=== PATIENT | male | born 1965 | race Caucasian/White ===

== ENCOUNTER 2016-04-02 10:16 | Emergency (ER) | payer OTHER ==
[~2016-04-02] VITALS: Ht 180.3 cm; Wt 70.5 kg
[2016-04-02 10:21] VITALS: BP 135/96; PULSE 76; RESP 18; O2SAT 94
--- NOTE | 2016-04-02 10:42 | ED.REPORT ---
HPI-General Illness Date of Service Apr 02, 2016 ED Provider: Panfilo Godfrey MD History of Present Illness: pateint presents with many concerns, homeless, no phone, problems sleeping, penitentiary issue. Was on clonzapam which worked but has not been able to get for some time. Mirtazepine is not helpful. Unable to get in touch with primary care or counseling because of transportation issues. Lives in [place] Nursing Notes Stated Complaint: SLEEPNESS NIGHTS/POSSIBLE BI-POLAR Chief Complaint: Psychiatric Complaint Nursing Notes Reviewed: Yes Allergies: Coded Allergies: No Known Allergies (Unverified , 09/18/15) General Time Seen by MD: 10:29 Chief Complaint Other (sleeping issue) Hx Obtained From: Patient Sudden in Onset?: No Onset Occurred: More than a week ago... (>6 months) Symptom Duration: Since onset Past Medical History Past Medical History deaf, does ok with lip reading. today 04/02/2016 requesting written questions Reports: COPD Past Surgical History cochlear implant Smoking History Current Every Day Smoker Social History Alcohol Use: Denies alcohol use Drug Use: Denies drug use Other Social History: Occupation states homeless but also states he lives in [place] 04/02/2016 Ambulatory Status Independent Review of Systems Full Review of Systems Constitutional: Reports: Fatigue, Denies: Chills Eyes: Denies: Blurred left, Blurred right Respiratory: Reports: Dyspnea on exertion (COPD) Cardiovascular: Denies: Chest pain Musculoskeletal: Reports: Back pain (Chronic pain) Skin: Denies Bruising Allergy / Immune: Denies: Allergic reaction Physical Exam Vital Signs Vital Signs Date Time Temp Pulse Resp B/P Pulse Ox O2 Delivery O2 Flow Rate FiO2 04/02/16 14:13 78 18 128/93 97 Room Air 04/02/16 10:21 37.0 76 18 135/96 94 Room Air Initial VS: Reviewed, Vital signs normal General/Constitutional: Well-developed, Well-nourished Head / Eyes: Atraumatic, Normocephalic, PERRL ENT: Mucous membranes moist, Conjunctiva normal, No scleral icterus Neck: Supple, Non-tender, Full range of motion Respiratory: Breath sounds normal, Clear to auscultation, No respiratory distress Cardiovascular: Regular rate & rhythm, Heart sounds normal, Intact distal pulses Abdomen / GI: Soft, Non-tender, No guarding, No rebound, No distention Back: No CVA tenderness Lymphatic: No lymphadenopathy Extremities: Vascular intact, Neuro intact, No swelling, No tenderness Skin: Warm, Dry, No cyanosis Neurologic: Alert, Oriented, Nonfocal Psychiatric: Mood/affect normal, Behavior normal, Normal thought content General/Constitutional: Awake, Alert, No acute distress Appearance / Presentation: Positive: Cachectic, Underweight Head / Eyes: Atraumatic, Normocephalic, PERRL Wheezing / Retractions: Positive: Wheezing mild Cardiovascular: Heart rate NL, Regular rhythm, Heart sounds NL, No gallop Interpretation & Diagnostics Lab Results Interpretation Test 04/02/16 10:52 Hold Urine Received (Received) Re-Eval/Medical Decision Med Decision/Clinical Course Discussed with VISUAL DEVELOPER. Arranged for next day appointment with cpit team. Patient OK with this Discharge & Departure Primary Impression: Acute situational disturbance Additional Impression: Sleeping difficulty Disposition: Home Additional Instructions: You are being provided a prescription of trazodone to help with your sleeping issues. As this has been a long standing issue it may take some time before improvement is noticed. Please keep the counseling appointment that has been scheduled by VISUAL DEVELOPER. [place]! Referrals: OTHER,PHYSICIAN (PCP) (Family) EDSupervising Provider for APC: Panfilo Godfrey MD Attending Statement Attending attestation: I saw this patient in conjunction with Carlita URBANO. I agree with the workup , evaluation, treatment and disposition. Panfilo Gutierrez MD, MD Apr 02, 2016 10:42 Carlita Quesada Apr 02, 2016 11:25
[2016-04-02 14:13] VITALS: BP 128/93; PULSE 78; RESP 18; O2SAT 97
== END 2016-04-02 14:14 | disposition home or self-care (01) ==
LOC: SED 10:16
DX: F43.0 Acute stress reaction (principal); G47.9 Sleep disorder, unspecified; J44.9 Chronic obstructive pulmonary disease, unspecified; F17.200 Nicotine dependence, unspecified, uncomplicated; Z59.0 Homelessness

== ENCOUNTER 2016-10-18 20:20 | Inpatient (IN) | payer MEDICAID, OTHER ==
[~2016-10-18] VITALS: Ht 180.3 cm; Wt 64.0 kg
[2016-10-18 20:26] VITALS: BP 125/79; PULSE 85; RESP 16; O2SAT 96
--- NOTE | 2016-10-18 22:21 | ED.REPORT ---
HPI-Psychiatric Illness Date of Service Oct 18, 2016 ED Provider: Jim Parra MD The pt is a 51 y/o, deaf male w/ a hx of bipolar disorder, Hepatitis C, ADHD, and COPD presenting to the ED due to suicidal ideations. The pts reports him saying that his mind and body are becoming fatigued, the pt crying from morning to night, as well as suicidal ideations and suggesting he would like to jump in front of a truck. She reports that the pt has not used any alcohol or drugs. Denies nausea, vomiting, diarrhea, chills, fever, chest or abdominal pain, SOB, or wheezing. The pt also uses an inhaler and last had a breathing treatment yesterday morning. Nursing Notes Stated Complaint: SUICIDAL,DEPRESSION,ANXIETY Chief Complaint: Suicidal ideations Nursing Notes Reviewed: Yes Allergies: Coded Allergies: No Known Allergies (Unverified , 09/18/15) Scheduled Amoxicillin (Amoxicillin) 500 Mg Capsule 500 MG PO TID Lamotrigine (Lamotrigine) 150 Mg Tablet 150 MG PO DAILY Trazodone (Trazodone) 100 Mg Tablet 100 MG PO HS Scheduled PRN Alprazolam ER (Xanax XR) 3 Mg Tab.er.24h 0.5 MG PO BID PRN PRN PRN Ibuprofen (Ibuprofen) 800 Mg Tablet 800 MG PO TID PRN PRN For Pain General Time Seen by MD: 22:19 Chief Complaint Suicidal ideation Hx Obtained From: Spouse Arrived By: Walk-in Symptom Duration: Since onset Recent Healthcare: No recent doctor visit, No recent hospitalization Similar Sx Previous: Yes Risk-Psychiatric Illness Suicide Risk Stratification Suicide Risk Factors - Adult: No: Alcohol use, Substance abuse RF Statements: Risk factors reviewed Past Medical History Past Medical History deaf, does ok with lip reading. today 04/02/2016 requesting written questions Hepatitis C ADHD Reports: COPD Past Surgical History cochlear implant Smoking History Current Every Day Smoker Social History Alcohol Use: Denies alcohol use Drug Use: Denies drug use Other Social History: Occupation states homeless but also states he lives in [place] 04/02/2016 Ambulatory Status Independent Review of Systems The pt's reports the pt crying all day Constitutional: Reports: Fatigue (of "body and mind" ), Denies: Chills, Fever Respiratory: Denies: Shortness of breath, Wheezing Cardiovascular: Denies: Chest pain GI: Denies: Abdominal pain, Diarrhea, Nausea, Vomiting Psychiatric: Reports: Depression, Suicidal ideation Complete sys rev & neg: except as marked. Physical Exam Initial Vital Signs Vital Signs (First) Date Time Temp Pulse Resp B/P Pulse Ox O2 Delivery O2 Flow Rate FiO2 10/18/16 20:26 36.6 85 16 125/79 96 Room Air Initial VS: Reviewed, Vital signs normal ENT: Mucous membranes moist, Conjunctiva normal, No scleral icterus Neck: Supple, Non-tender, Full range of motion Cardiovascular: Regular rate & rhythm, Heart sounds normal, Intact distal pulses Extremities: Vascular intact, Neuro intact, No swelling, No tenderness Skin: Warm, Dry, No cyanosis General/Constitutional: Awake, Alert Neurologic: No motor deficits Psychiatric: Not homicidal Abnormal Thinking / Perception: Positive: Suicidal, with plan (jumping in front of a truck ) Racing thoughts Head / Eyes: Normocephalic, PERRL, EOMI Respiratory / Chest: Atraumatic Resp Distress / Stridor: Positive: Resp distress mild Expiratory wheezes in all lung pacheco Interpretation & Diagnostics Lab Results Interpretation Result Diagram: 10/18/16 2241 10/18/16 2241 Test 10/18/16 22:22 10/18/16 22:41 10/18/16 22:50 Hold Urine Received (Received) White Blood Count 10.1th/mm3 (3.8-10.1) Red Blood Count 4.45mil/mm3 (4.40-5.80) Hemoglobin 14.3g/dL (13.8-17.2) Hematocrit 42.5% (41.0-50.0) Mean Corpuscular Volume 95.5fL (81-100) Mean Corpuscular Hemoglobin 32.1pg (27.0-35.0) Mean Corpuscular Hemoglobin Concent 33.6% (32.0-37.0) Red Cell Distribution Width 13.5% (12.3-15.4) Platelet Count 253bil/L (150-400) Neutrophils (%) (Auto) 59.5% (40-74) Lymphocytes (%) (Auto) 29.2% (14-46) Monocytes (%) (Auto) 9.3% (4-12) Eosinophils (%) (Auto) 1.5% (0-5) Basophils (%) (Auto) 0.2% (0-3) Sodium Level 142mEq/L (134-144) Potassium Level 4.5mEq/L (3.5-5.2) Chloride Level 102mEq/L (97-108) Carbon Dioxide Level 28mmol/L (18-29) Blood Urea Nitrogen 25mg/dL (6-24) Creatinine 1.11mg/dL (0.76-1.27) Estimat Glomerular Filtration Rate 75mL/min (>59) Glucose Level 64mg/dL (60-99) Calcium Level 9.6mg/dL (8.5-10.1) Total Bilirubin 0.2mg/dL (0.0-1.2) Aspartate Amino Transf (AST/SGOT) 23U/L (0-50) Alanine Aminotransferase (ALT/SGPT) 40U/L (0-44) Alkaline Phosphatase 66U/L (25-150) Total Protein 7.5g/dL (6.4-8.4) Albumin 4.3g/dL (3.4-5.0) Thyroid Stimulating Hormone (TSH) 3.390uIU/mL (0.450-4.500) Hold Jasso Top Tube Received (Received) Lab values outside NL range: no clinical significance. Re-Eval/Medical Decision Med Decision/Clinical Course I assumed care from Dr. Parra at 0600; his note and documentation is as above. I evaluated the patient independently. At time of sign out, patient's disposition was pending psychiatric social worker supervisor evaluation and likely admission for suicidal ideations. Laboratory studies here reviewed and reassuring. His urine tox screen did demonstrate positive for benzodiazepines (taking alprazolam ), marijuana (which he admits to using intermittently) and PCP. I do not think that marijuana is the cause of his symptoms at this time. With respect to the PCP screen, I discussed this with the patient and he vehemently denies any other drug use while readily admitting to marijuana use. He did not seem to know what PCP was. In addition, routine drug screens can have false positives, especially with respect to PCP. Also, the patient does not demonstrate a PCP toxidrome at this time. It seems unlikely that this is responsible for his symptoms at this time. Given the above, after discussion with the inpatient team, decision was made to admit him here for further management and evaluation ; appreciate assistance. Patient agreeable to the plan as stated, no further questions. Re-Evaluation/Progress : Time of Eval: 14:30 Patient Status: Condition improved Re-Evaluation/Progress Note: Recheck by Dr. Li. Pt will be admitted to the psychiatric unit. Counseled Regarding: Diagnosis, Lab results, Need for admission Discharge & Departure Shift Change Sign-Out Patient Care Transferred: Yes Discussed Complaint(s): Yes Input from Consult: Care transferred to Dr. Li Response to Therapy: Unchanged Impression: Primary Impression: Depression Depression Type: unspecified Qualified Code: F32.9 - Major depressive disorder, single episode, unspecified Additional Impression: Suicidal ideation Disposition: ADMITTED TO HOSPITAL Discharge Condition All VS Reviewed: Yes Condition: Stable Referrals: Natalya Sainz PA-C (PCP) Care Transferred to: Dr. Li Care Transferred at: 06:00 Scribe Attestation Portions of this note were transcribed by Aubrey Green. I, Dr. Parra personally performed the history, physical exam and medical decision-making; I reviewed and confirmed the accuracy of the information in the transcribed note. copies to: Natalya Sainz PA-C, Howard L MD Oct 18, 2016 22:21 Aubrey Green Oct 18, 2016 22:39 Aurelio Li MD Oct 19, 2016 06:01 SONU ANDERSON Oct 19, 2016 14:34
[2016-10-18] MEDS ORDERED: Albuterol HFA 60 Puff 8 Gm Inhaler INHALATION ONE (22:25)
[2016-10-18 22:58] LABS: BASOPHILS % (AUTO) 0.2 % (0-3); EOSINOPHILS % (AUTO) 1.5 % (0-5); MONOCYTES % (AUTO) 9.3 % (4-12); Mean Corpuscular Hemoglobin 32.1 pg (27.0-35.0); Mean Corpuscular Volume 95.5 fL (81-100); NEUTROPHILS % (AUTO) 59.5 % (40-74); Platelet Count 253 bil/L (150-400)
[2016-10-18] MEDS ORDERED: _Proair 200 Puff/8.5 GM Inhaler INHALATION PRN (23:15)
[2016-10-19 06:09] VITALS: BP 111/68; PULSE 57; RESP 16; O2SAT 99
[2016-10-19] MEDS ORDERED: IBUP800T28 PO (11:41)
[2016-10-19] MEDS ORDERED: TRAZ-118 PO (11:41)
[2016-10-19] MEDS ORDERED: AMOX500C2 PO (11:41)
[2016-10-19] MEDS ORDERED: ALPR3TAB PO (11:41)
[2016-10-19] MEDS ORDERED: LAMO150T2 PO (11:41)
[2016-10-19 14:40] VITALS: BP 100/81; PULSE 52; O2SAT 100
[2016-10-19] MEDS ORDERED: ALPR0.254 PO (15:33)
[2016-10-19] MEDS ORDERED: ALBU8.5H2 INHALATION (15:33)
[2016-10-19 17:15] VITALS: BP 100/81; PULSE 52
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
--- NOTE | 2016-10-19 20:03 | NUR ---
OBSERVATIONS 0900 TO 0 Pt arrived on the unit at 16:55. Pt is pleasant and cooperative with staff. Pt showered. Maintained Q15 checks for safety as directed.
[2016-10-19] MEDS ORDERED: Alum-Mag Hydrox-Simeth 30 mL Suspension PO PRN (20:25)
[2016-10-19] MEDS ORDERED: Magnesium Hydroxide 10 mL Oral Concentration PO PRN (20:25)
[2016-10-19] MEDS ORDERED: LORazepam 1 mg Tablet PO PRN (20:30)
[2016-10-19] MEDS ORDERED: Benzocaine-Menthol Lozenge 2/Pkg PO PRN (20:30)
--- NOTE | 2016-10-20 05:33 | NUR ---
nursing, nights, 11-7 s/o- has appeared to sleep after 2244 during q 15 minute assessments. a- no apparent distress. p- monitor behavior/emotional state, quality, times and amount of sleep, use and effect of medication. julian
[2016-10-20 08:00] VITALS: BP 124/79; PULSE 78; RESP 17
[2016-10-20] MEDS: lamoTRIgine 100 mg Tablet PO SCH (14:23)
--- NOTE | 2016-10-20 18:55 | NUR ---
Nurses Note Evening Patient has been out on the unit and has been social superficially with male peers. His affect has been brighter upon approach. He had a visit from his girlfriend which appeared to go well except she reported he was "paranoid." His hygiene,appetite have been within normal limits and patient reported sleeping well last night.Will continue to maintain q 15min. checks for safety,support encouraging relaxation techniques and improved insight. Addendum: 10/20/16 at 0 by EDGARDO DAILY RN Amended: Links added.
--- NOTE | 2016-10-20 21:10 | NUR ---
Observations 0900 - 2130 Pt affect and mood was flat, guarded, paranoid and anxious. Pt was pleasant, polite and cooperative when approached. Pt was social with staff and peers. Pt attended meals in [employer] and ate 100% of his meals. Pt attended community meeting and set a daily goal. Pt rated his mood as "good". Pt speech was limited due to being deaf and eye contact was good. Pt did a lot of writing throughout the day. Pt briefly visited with his and it appeared to go well. Pt watched movie with peers after evening snack. Pt was observed every 15 minutes through the shift as ordered.
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
--- NOTE | 2016-10-21 05:03 | NUR ---
Nursing Note Machinist Supervisor Outside 7pm to 7am Pt asleep at start of shift and slept through the night uninterrupted. Monitor pt q 15 minutes for safety, location and accountability
[2016-10-21 07:35] VITALS: BP 120/78; PULSE 62; RESP 17
[2016-10-21] MEDS: lamoTRIgine 100 mg Tablet PO SCH (08:31)
--- NOTE | 2016-10-21 14:28 | PCM.DIMED ---
Discharge Instructions Date of Service Oct 21, 2016 Dates of Hospitalization Oct 19, 2016 at 17:06 Discharge Diagnosis Discharge Diagnosis [place] I 1. Bipolar depressed by history versus dysthymic disorder versus depression disorder, unspecified. 2. Rule out posttraumatic stress disorder. 3. Rule out panic disorder. 4. Marijuana use disorder. 5. Tobacco use disorder. [place] II Deferred. [place] III 10% of his hearing remaining and has difficulty using [place] sign language, hepatitis C, COPD by report. [place] IV [id number]. [place] V Global assessment of functionin. Test Results Test Results CBC Test 10/18/16 22:41 White Blood Count 10.1th/mm3 (3.8-10.1) Red Blood Count 4.45mil/mm3 (4.40-5.80) Hemoglobin 14.3g/dL (13.8-17.2) Hematocrit 42.5% (41.0-50.0) Mean Corpuscular Volume 95.5fL (81-100) Mean Corpuscular Hemoglobin 32.1pg (27.0-35.0) Mean Corpuscular Hemoglobin Concent 33.6% (32.0-37.0) Red Cell Distribution Width 13.5% (12.3-15.4) Platelet Count 253bil/L (150-400) Neutrophils (%) (Auto) 59.5% (40-74) Lymphocytes (%) (Auto) 29.2% (14-46) Monocytes (%) (Auto) 9.3% (4-12) Eosinophils (%) (Auto) 1.5% (0-5) Basophils (%) (Auto) 0.2% (0-3) CMP Test 10/18/16 22:41 10/18/16 22:50 Sodium Level 142mEq/L Potassium Level 4.5mEq/L Chloride Level 102mEq/L Carbon Dioxide Level 28mmol/L Blood Urea Nitrogen 25mg/dL Creatinine 1.11mg/dL Estimat Glomerular Filtration Rate 75mL/min Glucose Level 64mg/dL Calcium Level 9.6mg/dL Total Bilirubin 0.2mg/dL Aspartate Amino Transf (AST/SGOT) 23U/L Alanine Aminotransferase (ALT/SGPT) 40U/L Alkaline Phosphatase 66U/L Total Protein 7.5g/dL Albumin 4.3g/dL Thyroid Stimulating Hormone (TSH) 3.390uIU/mL Hold Jasso Top Tube Received Diet Discharge Diet: No restrictions Activity Discharge Activity: No restrictions Patient Instructions Patient Instructions Should you have any thoughts of harming yourself or others, please call the crisis line, your provider, 911, or go to the nearest Emergency Department. Do not change or discontinue your medications without discussing with your provider. You have been given a prescription for 30 days supply of your new medication Follow-up plan Counselor Intake Luis Manuel on 10/23/16 at 9am [facility] [address] [place] [address] Arnie Beauchamp MD Oct 21, 2016 14:28
[2016-10-21] MEDS ORDERED: TEMA15CA3 PO (14:31)
[2016-10-21] MEDS ORDERED: ESCI10TA52 PO (14:31)
[2016-10-21] MEDS ORDERED: HYDR50CA3 PO (14:31)
--- NOTE | 2016-10-21 16:04 | NUR ---
Discharge Patient ambulated from unit accompanied by staff. Family waiting downstairs for discharge to transport patient home. Patient home medications and belongings returned prior to discharge. Prescriptions faxed to [facility]. Patient denies suicidal thought/thoughts of self harm, hallucinations and anxiety prior to discharge. Patient verbalizing understanding of discharge medications/instructions.
--- NOTE | 2016-10-21 16:09 | NUR ---
[employer] Worker/Counselor S:"I feel much better." O: Patient denies any SI or HI, no AVH, no anxiety or depression. A: Patient is being discharged today. He has a follow up appt with [facility] in [place] on 10/23/16. Patient has been provided with all discharge instructions and safety plan, as well as number to the crisis line. P: Follow discharge instructions.
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
== END 2016-10-21 16:04 | disposition home or self-care (01) | DRG 885 ==
LOC: SED 20:20 → MHC 10-19 17:06
PROVIDERS: ADMIT Psychiatry & Neurology Psychiatry; ATTEND Psychiatry & Neurology Psychiatry
DX: F31.89 Other bipolar disorder (principal); J44.9 Chronic obstructive pulmonary disease, unspecified; R45.851 Suicidal ideations; F34.1 Dysthymic disorder; F90.9 Attention-deficit hyperactivity disorder, unspecified type; H91.90 Unspecified hearing loss, unspecified ear; F17.210 Nicotine dependence, cigarettes, uncomplicated; F12.90 Cannabis use, unspecified, uncomplicated; Z79.51 Long term (current) use of inhaled steroids